=== PATIENT | male | born 1955 | race Caucasian/White ===

== ENCOUNTER 2019-09-04 17:14 | Inpatient (IN) ==
[2019-09-04 18:24] LABS: Acetaminophen < 10 mcg/mL (10-20); BUN/Creatinine Ratio 17 (6-26); Basophils # 0.1 K/mcL (0.0-0.2); Basophils % 0.8 %; Blood Urea Nitrogen 15 mg/dL (8-23); Calcium 9.1 mg/dL (8.6-10.3); Carbon Dioxide 25 mEq/L (23-29); Chloride 105 mEq/L (98-107); Eosinophils # 0.1 K/mcL (0.0-0.6); Eosinophils % 1.7 %; Ethanol 19 mg/dL (Less than 10); Glucose 95 mg/dL (70-105); Hematocrit 44.3 % (37.5-50.1); Hemoglobin 14.8 g/dL (12.9-16.9); Immature Granulocytes % 1.3 % (0-4); Lymphocytes # 2.3 K/mcL (0.6-4.6); Lymphocytes % 29.9 %; Mean Corpuscular HGB Conc 33.4 g/dL (31.6-35.5); Mean Corpuscular Hemoglobin 29.5 pg (28.0-33.3); Mean Corpuscular Volume 88.2 fL (83.0-100.0); Mean Platelet Volume 8.7 fL (9.4-12.4); Monocytes # 0.7 K/mcL (0.0-1.3); Neutrophils # 4.3 K/mcL (1.6-8.9); Osmolality,Calculated 289 (280-300); Platelet Count 255 K/mcL (140-400); Potassium 4.3 mEq/L (3.5-5.1); Red Blood Count 5.02 M/mcL (4.19-5.50); Red Cell Distribution Width 15.3 % (11.5-14.5); Salicylate < 2.5 mg/dL (15.0-30.0); Segmented Neutrophils % 57.3 %; Sodium 139 mEq/L (136-145); White Blood Count 7.6 K/mcL (4.3-11.1); eGFR For African Americans > 60 (> 60); eGFR For Non-African Americans > 60 (> 60)
[2019-09-04 18:55] LABS: Bilirubin,Urine Negative (Negative); Blood,Urine Negative (Negative); Clarity,Urine Clear (Clear); Color,Urine Yellow (Yellow); Glucose,Urine (UA) Normal (Normal); Ketones,Urine Negative (Negative); Leukocyte Esterase,Urine Negative (Negative); Nitrite,Urine Negative (Negative); Protein,Urine Negative (Neg-Trace); Specific Gravity,Urine 1.024 (1.010-1.025); Urobilinogen,Urine Normal (Normal)
[2019-09-04 19:06] LABS: Amphetamine Screen,Urine Positive ng/mL (Cutoff=1000); Barbiturate Screen,Urine Negative ng/mL (Cutoff=200); Benzodiazepines Screen,Urine Negative ng/mL (Cutoff=200); Cannabinoid Screen,Urine Positive ng/mL (Cutoff = 50); Cocaine Screen,Urine Negative ng/mL (Cutoff= 300); Opiate Screen,Urine Negative ng/mL (Cutoff=300); Phencyclidine Screen,Urine Negative ng/mL (Cutoff=25)
[2019-09-04] MEDS ORDERED: diazePAM 5 MG TABLET PO ONE (19:54)
[2019-09-04] MEDS ORDERED: *HR* LORazepam 2 MG/ML VIAL IVP PRN (20:49)
[2019-09-04] MEDS ORDERED: *HR* Promethazine 25 MG/ML VIAL IVP PRN (20:49)
[2019-09-04] MEDS: Thiamine (B-1) 100 MG, Folic Acid 1 MG, MVI, adult with vitamin K 10 ML in 0.9 % Sodi... IVPB SCH (21:47)
[2019-09-04] MEDS: *HR* LORazepam 2 MG/ML VIAL IVP PRN (22:20)
[2019-09-04] MEDS: *HR* Heparin 5,000 UNIT/ML VIAL SQ SCH (22:20)
[2019-09-05] MEDS: *HR* Heparin 5,000 UNIT/ML VIAL SQ SCH ×2 (04:56→13:28)
[2019-09-05] MEDS: *HR* LORazepam 2 MG/ML VIAL IVP PRN ×6 (07:21→23:57)
[2019-09-05 09:47] LABS: BUN/Creatinine Ratio 18 (6-26); Blood Urea Nitrogen 17 mg/dL (8-23); Calcium 9.2 mg/dL (8.6-10.3); Carbon Dioxide 27 mEq/L (23-29); Chloride 102 mEq/L (98-107); Glucose 151 mg/dL (70-105); Osmolality,Calculated 286 (280-300); Potassium 3.8 mEq/L (3.5-5.1); Sodium 136 mEq/L (136-145); eGFR For African Americans > 60 (> 60); eGFR For Non-African Americans > 60 (> 60)
[2019-09-05] MEDS: Thiamine (B-1) 100 MG, Folic Acid 1 MG, MVI, adult with vitamin K 10 ML in 0.9 % Sodi... IVPB SCH (19:44)
[2019-09-05] MEDS: Budesonide/Formoterol 160/4.5 1 PUFF INH IH SCH (22:05)
[2019-09-06] MEDS: *HR* Heparin 5,000 UNIT/ML VIAL SQ SCH ×4 (00:01→20:29)
[2019-09-06] MEDS: *HR* LORazepam 2 MG/ML VIAL IVP PRN ×2 (02:22→03:44)
[2019-09-06] MEDS ORDERED: Haloperidol Lactate 5 MG/ML VIAL IVP ONE (04:23)
[2019-09-06 04:29] LABS: Basophils # 0.1 K/mcL (0.0-0.2); Basophils % 0.6 %; Eosinophils # 0.2 K/mcL (0.0-0.6); Hematocrit 42.9 % (37.5-50.1); Hemoglobin 14.5 g/dL (12.9-16.9); Immature Granulocytes % 0.8 % (0-4); Lymphocytes # 2.9 K/mcL (0.6-4.6); Lymphocytes % 36.1 %; Mean Corpuscular HGB Conc 33.8 g/dL (31.6-35.5); Mean Corpuscular Hemoglobin 29.7 pg (28.0-33.3); Mean Corpuscular Volume 87.9 fL (83.0-100.0); Mean Platelet Volume 8.8 fL (9.4-12.4); Monocytes # 0.7 K/mcL (0.0-1.3); Monocytes % 8.7 %; Platelet Count 248 K/mcL (140-400); Red Blood Count 4.88 M/mcL (4.19-5.50); Red Cell Distribution Width 14.6 % (11.5-14.5); Segmented Neutrophils % 50.8 %; White Blood Count 7.9 K/mcL (4.3-11.1)
[2019-09-06 04:48] LABS: BUN/Creatinine Ratio 19 (6-26); Blood Urea Nitrogen 17 mg/dL (8-23); Calcium 9.2 mg/dL (8.6-10.3); Carbon Dioxide 27 mEq/L (23-29); Chloride 102 mEq/L (98-107); Glucose 111 mg/dL (70-105); Osmolality,Calculated 284 (280-300); Potassium 3.8 mEq/L (3.5-5.1); Sodium 136 mEq/L (136-145); eGFR For African Americans > 60 (> 60); eGFR For Non-African Americans > 60 (> 60)
[2019-09-06] MEDS ORDERED: *HR* Promethazine 25 MG/ML VIAL IVP ONE (04:56)
[2019-09-06] MEDS ORDERED: *HR* LORazepam 2 MG/ML VIAL IVP ONE (07:06)
[2019-09-06] MEDS: Budesonide/Formoterol 160/4.5 1 PUFF INH IH SCH ×2 (08:29→22:29)
[2019-09-06] MEDS: *HR* LORazepam 1 MG TABLET PO SCH ×3 (14:15→20:27)
[2019-09-06] MEDS: Thiamine (B-1) 100 MG, Folic Acid 1 MG, MVI, adult with vitamin K 10 ML in 0.9 % Sodi... IVPB SCH (14:17)
[2019-09-07] MEDS: *HR* Heparin 5,000 UNIT/ML VIAL SQ SCH ×3 (06:12→22:08)
[2019-09-07 06:31] LABS: Basophils # 0.1 K/mcL (0.0-0.2); Basophils % 0.8 %; Eosinophils # 0.3 K/mcL (0.0-0.6); Eosinophils % 3.7 %; Hematocrit 45.5 % (37.5-50.1); Hemoglobin 15.3 g/dL (12.9-16.9); Immature Granulocytes % 0.9 % (0-4); Lymphocytes # 3.2 K/mcL (0.6-4.6); Mean Corpuscular HGB Conc 33.6 g/dL (31.6-35.5); Mean Corpuscular Hemoglobin 29.8 pg (28.0-33.3); Mean Corpuscular Volume 88.7 fL (83.0-100.0); Mean Platelet Volume 8.9 fL (9.4-12.4); Monocytes # 0.7 K/mcL (0.0-1.3); Monocytes % 8.4 %; Neutrophils # 3.6 K/mcL (1.6-8.9); Platelet Count 239 K/mcL (140-400); Red Blood Count 5.13 M/mcL (4.19-5.50); Red Cell Distribution Width 14.7 % (11.5-14.5); Segmented Neutrophils % 45.2 %; White Blood Count 7.9 K/mcL (4.3-11.1)
[2019-09-07 06:51] LABS: BUN/Creatinine Ratio 25 (6-26); Blood Urea Nitrogen 24 mg/dL (8-23); Calcium 9.1 mg/dL (8.6-10.3); Carbon Dioxide 26 mEq/L (23-29); Chloride 105 mEq/L (98-107); Glucose 111 mg/dL (70-105); Osmolality,Calculated 289 (280-300); Potassium 4.3 mEq/L (3.5-5.1); Sodium 137 mEq/L (136-145); eGFR For African Americans > 60 (> 60); eGFR For Non-African Americans > 60 (> 60)
[2019-09-07] MEDS: *HR* LORazepam 1 MG TABLET PO SCH ×4 (08:31→22:08)
[2019-09-07] MEDS: Budesonide/Formoterol 160/4.5 1 PUFF INH IH SCH ×2 (10:26→19:35)
[2019-09-07] MEDS: *HR* LORazepam 2 MG/ML VIAL IVP PRN ×3 (15:42→19:56)
[2019-09-07] MEDS ORDERED: Fluticasone Propionate Nasal 50 MCG/SPRAY BOTTLE NS PRN (18:28)
[2019-09-07] MEDS ORDERED: Nitroglycerin 0.4 MG TAB.SUBL SL PRN (18:28)
[2019-09-07] MEDS ORDERED: Baclofen 10 MG TABLET PO PRN (18:28)
[2019-09-07] MEDS: Ascorbic Acid 500 MG TABLET PO SCH (19:57)
[2019-09-07] MEDS ORDERED: Haloperidol Lactate 5 MG/ML VIAL IVP ONE (21:10)
[2019-09-07] MEDS ORDERED: *HR* Promethazine 25 MG/ML VIAL IVP ONE (21:45)
[2019-09-08] MEDS: *HR* Heparin 5,000 UNIT/ML VIAL SQ SCH ×3 (06:09→20:30)
[2019-09-08] MEDS: Budesonide/Formoterol 160/4.5 1 PUFF INH IH SCH ×2 (09:51→19:55)
[2019-09-08] MEDS: Tiotropium 18 MCG inhalation IH SCH (09:53)
[2019-09-08] MEDS: *HR* LORazepam 1 MG TABLET PO SCH ×3 (10:35→20:30)
[2019-09-08] MEDS: Folic Acid 1 MG TABLET PO SCH (10:35)
[2019-09-08] MEDS: Ascorbic Acid 500 MG TABLET PO SCH ×2 (10:36→20:30)
[2019-09-08] MEDS: Aspirin Enteric Coated 81 MG Tablet PO SCH (10:36)
[2019-09-08] MEDS: Multivit/Ca/Min/Fe/FA 1 TAB TABLET PO SCH (10:36)
[2019-09-08] MEDS: Thiamine (B-1) 100 MG TABLET PO SCH (10:36)
[2019-09-08] MEDS: Haloperidol Lactate 5 MG/ML VIAL IVP PRN ×2 (15:59→21:19)
[2019-09-08] MEDS: *HR* LORazepam 2 MG/ML VIAL IVP PRN (23:56)
[2019-09-09] MEDS: *HR* LORazepam 2 MG/ML VIAL IVP PRN (01:03)
[2019-09-09] MEDS: *HR* Heparin 5,000 UNIT/ML VIAL SQ SCH ×2 (05:08→11:27)
[2019-09-09] MEDS: Tiotropium 18 MCG inhalation IH SCH (07:39)
[2019-09-09] MEDS: Budesonide/Formoterol 160/4.5 1 PUFF INH IH SCH (07:42)
[2019-09-09 08:35] VITALS: BP 99/62
[2019-09-09] MEDS: Aspirin Enteric Coated 81 MG Tablet PO SCH (09:28)
[2019-09-09] MEDS: Thiamine (B-1) 100 MG TABLET PO SCH (09:28)
[2019-09-09] MEDS: Folic Acid 1 MG TABLET PO SCH (09:29)
[2019-09-09] MEDS: Multivit/Ca/Min/Fe/FA 1 TAB TABLET PO SCH (09:29)
[2019-09-09] MEDS: Ascorbic Acid 500 MG TABLET PO SCH (09:30)
[2019-09-09] MEDS: *HR* LORazepam 1 MG TABLET PO SCH (09:31)
== END 2019-09-09 14:47 | disposition other institution (70) | DRG 897 ==
LOC: EMEROOARM 17:14 → 3BNU 17:14 → SUATTDRO 20:35 → 3BNU 21:12 → SUATTDRO 09-08 11:18
PROVIDERS: ADMIT Internal Medicine; ATTEND Internal Medicine

== ENCOUNTER 2019-10-17 20:09 | Observation (INO) ==
[2019-10-17 20:43] LABS: Basophils # 0.1 K/mcL (0.0-0.2); Basophils % 0.6 %; Eosinophils # 0.3 K/mcL (0.0-0.6); Eosinophils % 2.7 %; Hematocrit 45.8 % (37.5-50.1); Hemoglobin 16.1 g/dL (12.9-16.9); Immature Granulocytes % 0.9 % (0-4); Lymphocytes % 30.8 %; Mean Corpuscular HGB Conc 35.2 g/dL (31.6-35.5); Mean Corpuscular Hemoglobin 31.9 pg (28.0-33.3); Mean Corpuscular Volume 90.7 fL (83.0-100.0); Mean Platelet Volume 8.7 fL (9.4-12.4); Monocytes # 0.6 K/mcL (0.0-1.3); Monocytes % 6.4 %; Neutrophils # 5.7 K/mcL (1.6-8.9); Platelet Count 256 K/mcL (140-400); Red Blood Count 5.05 M/mcL (4.19-5.50); Red Cell Distribution Width 13.8 % (11.5-14.5); Segmented Neutrophils % 58.6 %; White Blood Count 9.7 K/mcL (4.3-11.1)
[2019-10-17 21:01] LABS: Acetaminophen < 10 mcg/mL (10-20); Alanine Aminotransferase 8 Units/L (7-52); Albumin 3.6 g/dL (3.5-5.7); Albumin/Globulin Ratio 1.2 (1.1-2.2); Alkaline Phosphatase 91 Units/L (34-104); Aspartate Amino Transferase 13 Units/L (13-39); BUN/Creatinine Ratio 13 (6-26); Bilirubin,Direct 0.1 mg/dL (0.0-0.2); Bilirubin,Indirect 0.4 mg/dL (0.0-1.0); Bilirubin,Total 0.5 mg/dL (0.3-1.0); Blood Urea Nitrogen 12 mg/dL (8-23); Calcium 8.8 mg/dL (8.6-10.3); Carbon Dioxide 28 mEq/L (23-29); Chloride 103 mEq/L (98-107); Ethanol 123 mg/dL (Less than 10); Globulin 2.9 g/dL (2.4-3.5); Glucose 98 mg/dL (70-105); Osmolality,Calculated 284 (280-300); Potassium 3.5 mEq/L (3.5-5.1); Salicylate < 2.5 mg/dL (15.0-30.0); Sodium 137 mEq/L (136-145); Total Protein 6.5 g/dL (6.4-8.9); eGFR For African Americans > 60 (> 60); eGFR For Non-African Americans > 60 (> 60)
[2019-10-17 21:14] LABS: Thyroid Stimulating Hormone 0.773 mcIU/mL (0.340-5.600)
[2019-10-17] MEDS ORDERED: 0.9 % Sodium Chloride 1,000 ML IVC ONE ×2 (21:14→22:11)
[2019-10-17 22:17] LABS: Bilirubin,Urine Negative (Negative); Blood,Urine Negative (Negative); Clarity,Urine Clear (Clear); Color,Urine Yellow (Yellow); Glucose,Urine (UA) Normal (Normal); Ketones,Urine Negative (Negative); Leukocyte Esterase,Urine Negative (Negative); Nitrite,Urine Negative (Negative); PH,Urine 5.5 pH Units (5.0-8.0); Protein,Urine Negative (Neg-Trace); Specific Gravity,Urine 1.011 (1.010-1.025); Urobilinogen,Urine Normal (Normal)
[2019-10-17 22:30] LABS: Amphetamine Screen,Urine Positive ng/mL (Cutoff=1000); Barbiturate Screen,Urine Negative ng/mL (Cutoff=200); Benzodiazepines Screen,Urine Positive ng/mL (Cutoff=200); Cannabinoid Screen,Urine Negative ng/mL (Cutoff = 50); Cocaine Screen,Urine Positive ng/mL (Cutoff= 300); Opiate Screen,Urine Negative ng/mL (Cutoff=300); Phencyclidine Screen,Urine Negative ng/mL (Cutoff=25)
[2019-10-17] MEDS ORDERED: Naloxone 0.4 MG/ML INJ IVP PRN (22:56)
[2019-10-17] MEDS ORDERED: Ondansetron 4 MG/2 ML VIAL IVP PRN (22:56)
[2019-10-17] MEDS ORDERED: Ipratropium/Albuterol Neb 3 ML IH PRN (23:01)
[2019-10-17] MEDS ORDERED: *HR* LORazepam 2 MG/ML VIAL IVP PRN ×3 (23:02)
[2019-10-18 00:54] LABS: Basophils # 0.1 K/mcL (0.0-0.2); Basophils % 0.7 %; Eosinophils # 0.3 K/mcL (0.0-0.6); Eosinophils % 2.6 %; Hematocrit 47.3 % (37.5-50.1); Hemoglobin 15.6 g/dL (12.9-16.9); Immature Granulocytes % 1.3 % (0-4); Lymphocytes # 3.8 K/mcL (0.6-4.6); Lymphocytes % 36.5 %; Mean Corpuscular Hemoglobin 30.9 pg (28.0-33.3); Mean Corpuscular Volume 93.7 fL (83.0-100.0); Mean Platelet Volume 9.2 fL (9.4-12.4); Monocytes # 0.6 K/mcL (0.0-1.3); Monocytes % 6.1 %; Neutrophils # 5.5 K/mcL (1.6-8.9); Platelet Count 222 K/mcL (140-400); Red Blood Count 5.05 M/mcL (4.19-5.50); Segmented Neutrophils % 52.8 %; White Blood Count 10.3 K/mcL (4.3-11.1)
[2019-10-18 01:05] LABS: BUN/Creatinine Ratio 12 (6-26); Blood Urea Nitrogen 10 mg/dL (8-23); Calcium 8.4 mg/dL (8.6-10.3); Carbon Dioxide 23 mEq/L (23-29); Chloride 109 mEq/L (98-107); Glucose 106 mg/dL (70-105); Magnesium 1.9 mg/dL (1.6-2.6); Osmolality,Calculated 291 (280-300); Phosphorous 2.3 mg/dL (2.7-4.5); Potassium 3.6 mEq/L (3.5-5.1); Sodium 141 mEq/L (136-145); eGFR For African Americans > 60 (> 60); eGFR For Non-African Americans > 60 (> 60)
[2019-10-18] MEDS: 0.9 % Sodium Chloride 1,000 ML IVC SCH ×2 (01:08→08:11)
[2019-10-18] MEDS: Budesonide/Formoterol 160/4.5 1 PUFF INH IH SCH ×2 (07:46→20:11)
[2019-10-18] MEDS: *HR* Heparin 5,000 UNIT/ML VIAL SQ SCH (17:26)
[2019-10-18] MEDS ORDERED: Nicotine 7 MG PATCH.TD24 TD SCH (17:30)
[2019-10-18] MEDS ORDERED: Thiamine (B-1) 100 MG, Folic Acid 1 MG, MVI, adult with vitamin K 10 ML in 0.9 % Sodi... IVPB SCH (18:00)
[2019-10-18] MEDS: Nicotine 21 MG PATCH.TD24 TD SCH (20:42)
[2019-10-19 01:13] LABS: Hematocrit 41.3 % (37.5-50.1); Mean Corpuscular HGB Conc 33.9 g/dL (31.6-35.5); Mean Corpuscular Hemoglobin 30.9 pg (28.0-33.3); Mean Corpuscular Volume 91.2 fL (83.0-100.0); Platelet Count 221 K/mcL (140-400); Red Blood Count 4.53 M/mcL (4.19-5.50); Red Cell Distribution Width 13.5 % (11.5-14.5); White Blood Count 9.5 K/mcL (4.3-11.1)
[2019-10-19 01:35] LABS: BUN/Creatinine Ratio 16 (6-26); Blood Urea Nitrogen 15 mg/dL (8-23); Calcium 8.2 mg/dL (8.6-10.3); Carbon Dioxide 25 mEq/L (23-29); Chloride 105 mEq/L (98-107); Glucose 108 mg/dL (70-105); Osmolality,Calculated 283 (280-300); Potassium 3.7 mEq/L (3.5-5.1); Sodium 136 mEq/L (136-145); eGFR For African Americans > 60 (> 60); eGFR For Non-African Americans > 60 (> 60)
[2019-10-19 06:49] VITALS: BP 109/74
[2019-10-19] MEDS: *HR* Heparin 5,000 UNIT/ML VIAL SQ SCH (07:48)
[2019-10-19] MEDS ORDERED: Aspirin Enteric Coated 81 MG Tablet PO SCH (09:00)
[2019-10-19] MEDS: Nicotine 21 MG PATCH.TD24 TD SCH (09:30)
[2019-10-19] MEDS: Budesonide/Formoterol 160/4.5 1 PUFF INH IH SCH (10:18)
== END 2019-10-19 10:56 | disposition left against medical advice (07) ==
LOC: 3BNU 20:09 → EMEROOARM 20:09 → 3BNU 23:58
PROVIDERS: ADMIT Internal Medicine; ATTEND Internal Medicine

== ENCOUNTER 2020-07-19 12:38 | Inpatient (IN) ==
[2020-07-19] MEDS ORDERED: 0.9 % Sodium Chloride 1,000 ML IVC ONE (13:57)
[2020-07-19] MEDS ORDERED: Folic Acid 1 MG TABLET PO ONE (13:57)
[2020-07-19] MEDS ORDERED: Multivit/Ca/Min/Fe/FA 1 TAB TABLET PO ONE (14:00)
[2020-07-19] MEDS ORDERED: Thiamine (B-1) 100 MG TABLET PO ONE (14:00)
[2020-07-19 14:19] LABS: Basophils # 0.1 K/mcL (0.0-0.2); Basophils % 0.6 %; Eosinophils # 0.2 K/mcL (0.0-0.6); Eosinophils % 2.4 %; Hematocrit 40.5 % (37.5-50.1); Immature Granulocytes % 0.7 % (0-4); Lymphocytes # 1.8 K/mcL (0.6-4.6); Lymphocytes % 20.3 %; Mean Corpuscular HGB Conc 34.6 g/dL (31.6-35.5); Mean Corpuscular Volume 86.9 fL (83.0-100.0); Mean Platelet Volume 9.3 fL (9.4-12.4); Monocytes # 0.7 K/mcL (0.0-1.3); Monocytes % 7.4 %; Neutrophils # 6.2 K/mcL (1.6-8.9); Platelet Count 252 K/mcL (140-400); Red Blood Count 4.66 M/mcL (4.19-5.50); Red Cell Distribution Width 13.2 % (11.5-14.5); Segmented Neutrophils % 68.6 %
[2020-07-19] MEDS ORDERED: Ondansetron 4 MG/2 ML VIAL IVP ONE (14:23)
[2020-07-19 14:36] LABS: Amphetamine Screen,Urine Positive ng/mL (Cutoff=1000); Barbiturate Screen,Urine Negative ng/mL (Cutoff=200); Benzodiazepines Screen,Urine Negative ng/mL (Cutoff=200); Cannabinoid Screen,Urine Positive ng/mL (Cutoff = 50); Cocaine Screen,Urine Positive ng/mL (Cutoff= 300); Opiate Screen,Urine Negative ng/mL (Cutoff=300); Phencyclidine Screen,Urine Negative ng/mL (Cutoff=25)
[2020-07-19 14:40] LABS: BUN/Creatinine Ratio 21 (6-26); Blood Urea Nitrogen 19 mg/dL (8-23); Carbon Dioxide 30 mEq/L (23-29); Chloride 102 mEq/L (98-107); Glucose 107 mg/dL (70-105); Osmolality,Calculated 285 (280-300); Potassium 3.8 mEq/L (3.5-5.1); Sodium 136 mEq/L (136-145); Troponin I < 0.03 ng/mL (< 0.04); eGFR For African Americans > 60 (> 60); eGFR For Non-African Americans > 60 (> 60)
[2020-07-19] MEDS: *HR* LORazepam 2 MG/ML VIAL IVP PRN ×2 (15:02→22:04)
[2020-07-19] MEDS: Nicotine 21 MG PATCH.TD24 TD SCH (15:03)
[2020-07-19] MEDS ORDERED: 0.9 % Sodium Chloride 1,000 ML IVC SCH (16:45)
[2020-07-19] MEDS ORDERED: Ondansetron 4 MG/2 ML VIAL IVP PRN (17:37)
[2020-07-19 23:25] LABS: Bilirubin,Urine Negative (Negative); Blood,Urine Negative (Negative); Clarity,Urine Clear (Clear); Color,Urine Yellow (Yellow); Glucose,Urine (UA) Normal (Normal); Ketones,Urine Negative (Negative); Leukocyte Esterase,Urine Negative (Negative); Nitrite,Urine Negative (Negative); PH,Urine 5.5 pH Units (5.0-8.0); Protein,Urine Trace mg/dL (Neg-Trace); Specific Gravity,Urine > 1.030 (1.010-1.025)
[2020-07-20 01:25] LABS: Hematocrit 37.9 % (37.5-50.1); Hemoglobin 12.8 g/dL (12.9-16.9); Mean Corpuscular HGB Conc 33.8 g/dL (31.6-35.5); Mean Corpuscular Hemoglobin 29.8 pg (28.0-33.3); Mean Corpuscular Volume 88.1 fL (83.0-100.0); Mean Platelet Volume 9.3 fL (9.4-12.4); Platelet Count 204 K/mcL (140-400); Red Cell Distribution Width 13.2 % (11.5-14.5); White Blood Count 7.6 K/mcL (4.3-11.1)
[2020-07-20 01:44] LABS: BUN/Creatinine Ratio 19 (6-26); Blood Urea Nitrogen 14 mg/dL (8-23); Calcium 8.4 mg/dL (8.6-10.3); Carbon Dioxide 25 mEq/L (23-29); Chloride 107 mEq/L (98-107); Glucose 128 mg/dL (70-105); Magnesium 1.7 mg/dL (1.6-2.6); Osmolality,Calculated 284 (280-300); Potassium 3.7 mEq/L (3.5-5.1); Sodium 136 mEq/L (136-145); eGFR For African Americans > 60 (> 60); eGFR For Non-African Americans > 60 (> 60)
[2020-07-20] MEDS: Aspirin Enteric Coated 81 MG Tablet PO SCH (08:23)
[2020-07-20] MEDS: Nicotine 21 MG PATCH.TD24 TD SCH (08:24)
[2020-07-20] MEDS: *HR* LORazepam 2 MG/ML VIAL IVP PRN ×5 (08:37→21:37)
[2020-07-20] MEDS ORDERED: Haloperidol Lactate 5 MG/ML VIAL IVP ONE (10:36)
[2020-07-20] MEDS ORDERED: Dexmedetomidine HCl 400 MCG/100 ML MLS IVC SCH (10:45)
[2020-07-20] MEDS: Tiotropium 10 INH DOSE IH SCH (11:18)
[2020-07-21] MEDS: *HR* LORazepam 2 MG/ML VIAL IVP PRN ×6 (01:43→20:17)
[2020-07-21 03:02] LABS: BUN/Creatinine Ratio 17 (6-26); Blood Urea Nitrogen 12 mg/dL (8-23); Calcium 9.3 mg/dL (8.6-10.3); Carbon Dioxide 24 mEq/L (23-29); Chloride 97 mEq/L (98-107); Glucose 115 mg/dL (70-105); Magnesium 1.6 mg/dL (1.6-2.6); Osmolality,Calculated 273 (280-300); Potassium 3.3 mEq/L (3.5-5.1); Sodium 131 mEq/L (136-145); eGFR For African Americans > 60 (> 60); eGFR For Non-African Americans > 60 (> 60)
[2020-07-21] MEDS: *HR* Enoxaparin 40 MG/0.4 ML SYRINGE SQ SCH (04:32)
[2020-07-21] MEDS ORDERED: Potassium Chloride 20 MEQ, Lidocaine 1% 2 ML in 0.9 % Sodium Chloride 250 ML IVPB ONE (07:34)
[2020-07-21] MEDS: Aspirin Enteric Coated 81 MG Tablet PO SCH (08:21)
[2020-07-21] MEDS: Nicotine 21 MG PATCH.TD24 TD SCH (08:21)
[2020-07-21] MEDS: Tiotropium 10 INH DOSE IH SCH ×2 (09:30→09:31)
[2020-07-21] MEDS ORDERED: Haloperidol Lactate 5 MG/ML VIAL IM ONE ×2 (10:21→20:59)
[2020-07-21] MEDS: Thiamine (B-1) 100 MG in 0.9 % Sodium Chloride 50 ML IVPB SCH (20:18)
[2020-07-22] MEDS: *HR* LORazepam 2 MG/ML VIAL IVP PRN ×3 (01:45→13:54)
[2020-07-22] MEDS: Thiamine (B-1) 100 MG in 0.9 % Sodium Chloride 50 ML IVPB SCH ×2 (03:00→09:35)
[2020-07-22] MEDS: *HR* Enoxaparin 40 MG/0.4 ML SYRINGE SQ SCH (05:14)
[2020-07-22] MEDS: Acetaminophen 325 MG TABLET PO PRN ×3 (06:19→21:04)
[2020-07-22] MEDS: Tiotropium 10 INH DOSE IH SCH (07:39)
[2020-07-22] MEDS: Nicotine 21 MG PATCH.TD24 TD SCH (09:26)
[2020-07-22] MEDS: Folic Acid 1 MG TABLET PO SCH (09:26)
[2020-07-22] MEDS: Aspirin Enteric Coated 81 MG Tablet PO SCH (09:28)
[2020-07-22] MEDS ORDERED: Ibuprofen 600 MG TABLET PO ONE ×2 (16:45→23:22)
[2020-07-22] MEDS ORDERED: Sennosides/Docusate Sodium TABLET PO PRN (17:53)
[2020-07-22] MEDS ORDERED: *HR* LORazepam 2 MG/ML VIAL IVP ONE (23:23)
[2020-07-23] MEDS ORDERED: hydrOXYzine pamoate 25 MG CAPSULE PO ONE (02:07)
[2020-07-23 03:35] LABS: BUN/Creatinine Ratio 22 (6-26); Blood Urea Nitrogen 18 mg/dL (8-23); Calcium 9.3 mg/dL (8.6-10.3); Carbon Dioxide 26 mEq/L (23-29); Chloride 98 mEq/L (98-107); Glucose 132 mg/dL (70-105); Osmolality,Calculated 280 (280-300); Sodium 133 mEq/L (136-145); eGFR For African Americans > 60 (> 60); eGFR For Non-African Americans > 60 (> 60)
[2020-07-23] MEDS: *HR* Enoxaparin 40 MG/0.4 ML SYRINGE SQ SCH (06:41)
[2020-07-23] MEDS ORDERED: Potassium Chloride 40 MEQ, Lidocaine 1% 2 ML in 0.9 % Sodium Chloride 500 ML IVPB ONE (07:38)
[2020-07-23] MEDS: Nicotine 21 MG PATCH.TD24 TD SCH (08:56)
[2020-07-23] MEDS: Aspirin Enteric Coated 81 MG Tablet PO SCH (08:56)
[2020-07-23] MEDS: Folic Acid 1 MG TABLET PO SCH (08:56)
[2020-07-23] MEDS: Thiamine (B-1) 100 MG in 0.9 % Sodium Chloride 50 ML IVPB SCH (08:57)
[2020-07-23] MEDS: Tiotropium 10 INH DOSE IH SCH (09:43)
[2020-07-23] MEDS: *HR* LORazepam 2 MG/ML VIAL IVP PRN ×3 (10:23→20:48)
[2020-07-23] MEDS: Acetaminophen 325 MG TABLET PO PRN (17:36)
[2020-07-23] MEDS: Melatonin 3 MG TABLET PO SCH (20:49)
[2020-07-23] MEDS: traZODone 50 MG TABLET PO SCH (20:49)
[2020-07-24] MEDS: *HR* LORazepam 2 MG/ML VIAL IVP PRN ×2 (00:53→11:55)
[2020-07-24 02:34] LABS: BUN/Creatinine Ratio 22 (6-26); Blood Urea Nitrogen 16 mg/dL (8-23); Calcium 9.5 mg/dL (8.6-10.3); Carbon Dioxide 28 mEq/L (23-29); Chloride 101 mEq/L (98-107); Glucose 119 mg/dL (70-105); Magnesium 1.7 mg/dL (1.6-2.6); Osmolality,Calculated 286 (280-300); Potassium 3.9 mEq/L (3.5-5.1); Sodium 137 mEq/L (136-145); eGFR For African Americans > 60 (> 60); eGFR For Non-African Americans > 60 (> 60)
[2020-07-24] MEDS: *HR* Enoxaparin 40 MG/0.4 ML SYRINGE SQ SCH (08:23)
[2020-07-24] MEDS: Aspirin Enteric Coated 81 MG Tablet PO SCH (10:00)
[2020-07-24] MEDS: Folic Acid 1 MG TABLET PO SCH (10:00)
[2020-07-24] MEDS: Nicotine 21 MG PATCH.TD24 TD SCH (10:01)
[2020-07-24] MEDS: Thiamine (B-1) 100 MG in 0.9 % Sodium Chloride 50 ML IVPB SCH (10:01)
[2020-07-24] MEDS: Tiotropium 10 INH DOSE IH SCH (10:58)
[2020-07-24 18:48] LABS: Adenovirus Not Detected (Not Detect); Bordetella Pertussis Not Detected (Not Detect); Chlamydophila pneumoniae Not Detected (Not Detect); Coronavirus 229E Not Detected (Not Detect); Coronavirus HKU1 Not Detected (Not Detect); Coronavirus NL63 Not Detected (Not Detect); Coronavirus OC43 Not Detected (Not Detect); Human Metapneumovirus Not Detected (Not Detect); Human Rhinovirus/Enterovirus Not Detected (Not Detect); Influenza A Subtype 2009 H1 Not Detected (Not Detect); Influenza B Not Detected (Not Detect); Mycoplasma pneumoniae Not Detected (Not Detect); Parainfluenza Virus 1 Not Detected (Not Detect); Parainfluenza Virus 2 Not Detected (Not Detect); Parainfluenza Virus 3 Not Detected (Not Detect); Parainfluenza Virus 4 Not Detected (Not Detect); Respiratory Syncytial Virus Not Detected (Not Detect); SARS-CoV-2 Not Detected (Not Detect)
[2020-07-24] MEDS: Acetaminophen 325 MG TABLET PO PRN (19:37)
[2020-07-24] MEDS: Melatonin 3 MG TABLET PO SCH (20:40)
[2020-07-24] MEDS: traZODone 50 MG TABLET PO SCH (20:40)
[2020-07-24 21:12] VITALS: BP 129/83
[2020-07-24] MEDS ORDERED: Ibuprofen 600 MG TABLET PO ONE (22:31)
[2020-07-24] MEDS ORDERED: hydrOXYzine pamoate 25 MG CAPSULE PO ONE (22:32)
[2020-07-24] MEDS ORDERED: *HR* HYDROcodone/Acet 5/325 mg TABLET PO ONE (23:58)
[2020-07-25] MEDS: *HR* Enoxaparin 40 MG/0.4 ML SYRINGE SQ SCH (08:53)
[2020-07-25] MEDS: Folic Acid 1 MG TABLET PO SCH (09:06)
[2020-07-25] MEDS: Aspirin Enteric Coated 81 MG Tablet PO SCH (09:06)
[2020-07-25] MEDS: Nicotine 21 MG PATCH.TD24 TD SCH (09:07)
[2020-07-25] MEDS: Thiamine (B-1) 100 MG in 0.9 % Sodium Chloride 50 ML IVPB SCH (09:33)
[2020-07-25] MEDS ORDERED: *HR* OxyCODONE Immed Rel 5 MG TABLET PO ONE (10:00)
[2020-07-25] MEDS: Tiotropium 10 INH DOSE IH SCH (10:34)
== END 2020-07-25 13:48 | DRG 897 ==
LOC: EMEROOARM 12:38 → 2NNU 12:38 → SUATTDRO 16:45 → 2NNU 18:09 → 2NENU 07-20 13:48
PROVIDERS: ADMIT Internal Medicine; ATTEND Internal Medicine